=== PATIENT | female | born 1995 | race Caucasian/White ===

== ENCOUNTER → 2019-06-14 | Outpatient (REF) | payer OTHER ==
[2019-06-14 19:52] LABS: CHLAMYDIA DNA AMPLIFICATION NEGATIVE (NEGATIVE); GC DNA AMPLIFICATION NEGATIVE (NEGATIVE)
== END ==
LOC: M SFHCLERA 11:29
PROVIDERS: ATTEND Nurse Practitioner Family
DX: R35.0 Frequency of micturition (principal)
CPT/HCPCS: 81002; 81025; 87088; 87186; 87661; G0463

== ENCOUNTER 2020-08-14 12:31 | Emergency (ER) | payer OTHER ==
[~2020-08-14] VITALS: Ht 172.7 cm; Wt 69.8 kg
[2020-08-14] MEDS ORDERED: BENA25CA4 PO (12:56)
[2020-08-14] MEDS ORDERED: methylPREDNISolone 125MG 2ML VIAL IV ONE (13:20)
[2020-08-14] MEDS ORDERED: FAMOTIDINE INJ 20MG/2ML VIAL (S0028 PER 1) IVP ONE (13:20)
[2020-08-14] MEDS ORDERED: diphenhydrAMINE 50MG CAP PO ONE (13:20)
[2020-08-14 13:37] LABS: HEMATOCRIT 41.8 % (36.0-47.0); HEMOGLOBIN 14.1 g/dl (12.0-15.5); MEAN CORPUSCULAR HEMOGLOBIN 28.5 pg (27.0-33.0); MEAN CORPUSCULAR HGB CONC 33.7 g/dl (32.0-36.5); MEAN CORPUSCULAR VOLUME 84.4 fl (80.0-96.0); PLATELET COUNT, AUTOMATED 271 10^3/uL (150-450); RED BLOOD COUNT 4.95 10^6/uL (4.00-5.40); WHITE BLOOD COUNT 6.1 10^3/uL (4.0-10.0)
[2020-08-14 13:53] LABS: ATYPICAL LYMPH 2 % (0-5); LYMPHOCYTES 45 % (16-44); MONOCYTES 3 % (0-5); NEUTROPHILS 46 % (28-66)
[2020-08-14 13:54] LABS: PLATELET ESTIMATE NORMAL (NORMAL)
[2020-08-14 14:08] LABS: BLOOD UREA NITROGEN 12 MG/DL (7-18); CALCIUM LEVEL 8.7 MG/DL (8.5-10.1); CARBON DIOXIDE LEVEL 26 MEQ/L (21-32); CHLORIDE LEVEL 107 MEQ/L (98-107); CREATININE FOR GFR 0.57 MG/DL (0.55-1.30); GLOMERULAR FILTRATION RATE > 60.0 (>60); GLUCOSE, FASTING 86 MG/DL (70-100); POTASSIUM SERUM 4.3 MEQ/L (3.5-5.1); SODIUM LEVEL 137 MEQ/L (136-145)
[2020-08-14] MEDS ORDERED: PRED20TA PO (14:24)
[2020-08-14 14:31] VITALS: BP 124/73
== END 2020-08-14 14:37 | disposition home or self-care (01) ==
LOC: M ED 12:31
DX: L50.0 Allergic urticaria (principal); Z91.013 Allergy to seafood
CPT/HCPCS: 80048; 85025; 96374; 96375; 99284; J2930

== ENCOUNTER 2020-08-16 00:51 | Emergency (ER) | payer OTHER ==
[~2020-08-16] VITALS: Ht 172.7 cm; Wt 68.6 kg
[~2020-08-16 00:51] MED LIST: BENA25CA4 PO; PRED20TA PO
[2020-08-16] MEDS ORDERED: AMOX875T PO (01:03)
[2020-08-16] MEDS ORDERED: MUCI30TA5 PO (01:03)
[2020-08-16] MEDS ORDERED: hydrOXYzine 50 MG TAB PO STA (01:44)
[2020-08-16] MEDS ORDERED: HYDR-3363 PO ×2 (02:00→02:13)
[2020-08-16 02:18] VITALS: BP 130/73
== END 2020-08-16 02:18 | disposition home or self-care (01) ==
LOC: M ED 00:51
DX: R22.0 Localized swelling, mass and lump, head (principal); T78.40XA Allergy, unspecified, initial encounter; Y92.9 Unspecified place or not applicable; Y93.9 Activity, unspecified; Z91.013 Allergy to seafood

== ENCOUNTER 2021-02-09 23:52 | Emergency (ER) | payer OTHER ==
[~2021-02-09] VITALS: Ht 172.7 cm; Wt 66.8 kg
[2021-02-09 23:52] VITALS: BP 138/64
[~2021-02-09 23:52] MED LIST changes: +AMOX875T PO; +HYDR-3363 PO; +MUCI30TA5 PO
== END 2021-02-10 04:14 | disposition left against medical advice (07) ==
LOC: M ED 23:52
DX: Z53.21 Procedure and treatment not carried out due to patient leaving prior to being seen by health care provider (principal)